=== PATIENT | female | born 1975 | race American Indian/Alaskan Native ===

== ENCOUNTER 2020-11-02 08:45 | Emergency (ER) | payer SELFPAY ==
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
[2020-11-02 13:25] VITALS: BP 143/86
== END 2020-11-02 18:08 ==
LOC: ED 08:45
DX: S01.512A Laceration without foreign body of oral cavity, initial encounter (principal); F17.200 Nicotine dependence, unspecified, uncomplicated; Z86.69 Personal history of other diseases of the nervous system and sense organs; Y04.8XXA Assault by other bodily force, initial encounter; Y93.89 Activity, other specified; Y92.89 Other specified places as the place of occurrence of the external cause; Y99.8 Other external cause status
CPT/HCPCS: 70450; 70486; 72125; 99283